=== PATIENT | male | born 1990 | race Hispanic/Latino ===

== ENCOUNTER 2019-11-24 07:00 | Outpatient (RCR) | payer BC | END 2019-11-25 | LOC: PT 07:00 | PROVIDERS: ATTEND Specialist | DX: M25.562 Pain in left knee (principal); M25.462 Effusion, left knee; M25.662 Stiffness of left knee, not elsewhere classified; R26.9 Unspecified abnormalities of gait and mobility; M62.81 Muscle weakness (generalized) ==

== ENCOUNTER 2019-12-21 13:52 | Outpatient (RCR) | payer BC | END 2019-12-26 | LOC: PT 13:52 | PROVIDERS: ATTEND Specialist | DX: M25.562 Pain in left knee (principal); M25.662 Stiffness of left knee, not elsewhere classified; M25.462 Effusion, left knee; R26.9 Unspecified abnormalities of gait and mobility; M62.81 Muscle weakness (generalized) | CPT/HCPCS: 97110 ×8; 97112; G0283 ×2 ==

== ENCOUNTER 2020-01-24 17:00 | Outpatient (RCR) | payer BC | END 2020-01-25 | LOC: PT 17:00 | PROVIDERS: ATTEND Specialist | DX: S83.512A Sprain of anterior cruciate ligament of left knee, initial encounter (principal); M25.562 Pain in left knee; M25.662 Stiffness of left knee, not elsewhere classified; M25.462 Effusion, left knee; R26.9 Unspecified abnormalities of gait and mobility; M62.81 Muscle weakness (generalized) | CPT/HCPCS: 97139 ==

== ENCOUNTER 2020-02-02 09:00 | Outpatient (RCR) | payer BC | END 2020-02-25 | LOC: PT 09:00 | PROVIDERS: ATTEND Specialist | DX: S83.512A Sprain of anterior cruciate ligament of left knee, initial encounter (principal); S83.242A Other tear of medial meniscus, current injury, left knee, initial encounter ==